=== PATIENT | male | born 1965 | race Caucasian/White ===

== ENCOUNTER 2018-11-04 09:03 | Day surgery (SDC) | payer OTHER ==
[~2018-11-04] VITALS: Ht 167.6 cm; Wt 72.0 kg
[2018-11-04] VITALS (12 sets, daily range): BP systolic 98–122; BP diastolic 49–86; PULSE 52–64; RESP 14–18; Ht 167.6 cm; Wt 72.0 kg
[~2018-11-04 09:03] MED LIST: CEFAZOLIN 2 GM/50 ML (PMX) 50 ML IVPB ONE; SOD CHLORIDE 0.9% 1,000 ML IV ONE
[2018-11-04] MEDS ORDERED: HYDROCODONE/APAP (5/325) TAB PO ONE (11:00)
[2018-11-04] MEDS ORDERED: FENTAnyl 50 MCG/ML VIAL ONE (11:56)
[2018-11-04] MEDS ORDERED: LIDOCAINE 1% (MDV) 20 ML INJ ONE (11:56)
[2018-11-04] MEDS ORDERED: PROPOFOL 20 ML ONE (11:56)
[2018-11-04] MEDS ORDERED: MIDAZOLAM 1 MG/ML 2 ML INJ ONE (11:56)
[2018-11-04] MEDS ORDERED: SUGAMMADEX SODIUM 200 MG/2 ML VIAL IV ONE (11:58)
--- NOTE | 2018-11-04 12:21 | PREAC ---
Date/Time of Note Date/Time of Note DATE: 11/04/18 TIME: 12:20 Anesthesia Eval and Record Evaluation Time Pre-Procedure Interview DATE: 11/04/18 TIME: 12:20 Age 53 Sex male NPO: 8 hrs Preoperative diagnosis inguinal hernia Planned procedure right open hernia repair Past Medical History Past Medical History: None Surgery & Anesthesia Issues No known issue Meds Anticoagulation: No Beta Shane within 24 hr: No Reason Beta Shnae not given: Pt. not on B-Shane No Active Prescriptions or Reported Meds Current Medications Sodium Chloride 1,000 ml @ 75 mls/hr [id number] ONCE IV Last administered on 11/04/18at 10:18; Admin Dose 75 MLS/HR; Start 11/04/18 at 08:00; Stop 11/04/18 at 21:19 Meds reviewed: Yes Allergies Coded Allergies: No Known Allergy (Unverified , 11/04/18) Allergies Reviewed: Yes Labs/Studies Labs Reviewed: Reviewed by anesthesiologist test: N/A Pre-procedure Exam Last vitals Vital Signs Date Temp Pulse Resp B/P (MAP) Pulse Ox O2 O2 Flow FiO2 Time Delivery Rate 11/04/18 97.6 60 16 105/70 98 Room Air 10:10 (82) Airway: Adequate mouth opening, Adequate thyromental dist Mallampati: Mallampati III Teeth: Normal Lung: Normal Heart: Normal ASA Physical Status ASA physical status: 1 Emergency: None Pre-operative Attestations Prior to commencing anesthesia and surgery, the patient was re-evaluated, there was verification of: *The patient's identity *The results of appropriate recent lab work and preoperative vital signs *The above evaluation not changing prior to induction *Anesthetic plan, risk benefits, alternative and complications discussed with patient/family; questions answered; patient/family understands, accepts and wishes to proceed. DEB ULLOA DO Nov 04, 2018 12:20
[2018-11-04] MEDS ORDERED: FAMOTIDINE 20 MG INJ ONE (12:24)
[2018-11-04] MEDS ORDERED: ROPIVACAINE 0.2% 20 ML VIAL ONE (12:24)
[2018-11-04] MEDS ORDERED: DIPHENHYDRAMINE 50 MG INJ IV PRN (12:30)
[2018-11-04] MEDS ORDERED: MEPERIDINE 25 MG INJ IV PRN (12:30)
[2018-11-04] MEDS ORDERED: ONDANSETRON 4 MG INJ IV PRN (12:30)
[2018-11-04] MEDS ORDERED: HYDROmorphONE 1 MG/5 ML IV SYRINGE IV PRN ×3 (12:30)
[2018-11-04] MEDS ORDERED: OXYCODONE/ACETAMINOPHEN (5/325) TAB PO PRN ×2 (12:30)
[2018-11-04] MEDS ORDERED: POLYMYXIN/BACITRACIN 1L IRRIG ONE (12:39)
[2018-11-04] MEDS ORDERED: CEFAZOLIN 1 GM INJ ONE (12:51)
[2018-11-04] MEDS ORDERED: DEXAMETHASONE 4 MG/ML 5 ML INJ ONE (12:52)
[2018-11-04] MEDS ORDERED: ONDANSETRON 4 MG INJ ONE (12:52)
--- NOTE | 2018-11-04 13:48 | OPR ---
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 He request surgical repair. Risks alternatives benefits and personal were discussed the patient. Patient expressed understanding and consents to the operation. Procedure Description Patient is taken to the OR and prepped and draped in usual sterile fashion. Surgical time was performed. IV antibiotics given. Right inguinal oblique incision was made at the 10 blade. Dissection with cautery was carried onto external oblique fascia. The external oblique fascia is open with a 15 blade. This incision is extended medially inferiorly and lateral superiorly with Metzenbaum scissors. Cord structures are identified and encircled with a Phoenix drain. Large indirect incarcerated inguinal hernia is first identified. Lysis of adhesions performed in this hernia was then manually reduced. This hernia defect was then bolstered with the disc portion of the ultra pro hernia system plug mesh. The disc is secured in place the running 0 Prolene from the pubic tubercle along the shelving edge of the inguinal ligament. Superiorly the disc is secured to the internal oblique with interrupted 3-0 Vicryl. Onlay mesh was secured in a similar fashion with a running 0 Prolene from the pubic tuber mark along the shelving edge of the inguinal limit. Superiorly the disc is secured to the internal oblique with interrupted 0 Vicryl. Onlay mesh is secured in a similar fashion with a running 0 Prolene from the pubic tubercle along the shelving edge of inguinal ligament. Superiorly the onlay mesh was secured to enter oblique with interrupted 3-0 Vicryl. External oblique is close d with running 3-0 Vicryl. Yoav's fascia is closed with interrupted 3-0 Vicryl. Skin is closed using inzorb observable skin stapler. A tap block was provided by the anesthesiologist at the beginning the case. Steri-Strips and dry dressings were applied. Michell DEL CID Nov 04, 2018 13:48
--- NOTE | 2018-11-04 13:51 | PAC ---
Date/Time of Note Date/Time of Note DATE: 11/04/18 TIME: 13:51 Post-Anesthesia Notes Post-Anesthesia Note Last documented vital signs Vital Signs Date Temp Pulse Resp B/P (MAP) Pulse Ox O2 O2 Flow FiO2 Time Delivery Rate 11/04/18 98.0 69 18 95/59 100 1350 11/04/18 58 14 105/51 100 Mask 8.0 13:36 (69) Activity: WNL Respiratory function: WNL Cardiovascular function: WNL Mental status: Baseline Pain reasonably controlled: Yes Hydration appropriate: Yes Nausea/Vomiting absent: Yes DEB ULLOA DO Nov 04, 2018 13:51
== END 2018-11-04 15:13 | disposition home or self-care (01) ==
LOC: SDS 09:03
PROVIDERS: ATTEND Surgery
DX: K40.30 Unilateral inguinal hernia, with obstruction, without gangrene, not specified as recurrent (principal)
CPT/HCPCS: 49507; C1781; J0690; J1100; J2250; J2405; J2795; J3010; J7030; Z7512; Z7610